=== PATIENT | male | born 1965 | race Caucasian/White ===

== ENCOUNTER 2021-02-14 08:22 | Emergency (ER) | payer OTHER ==
[2021-02-14] MEDS ORDERED: LIDOCAINE 1% MPF 5 ML VIAL ONE (09:00)
[2021-02-14] MEDS ORDERED: CEPHALEXIN 250 MG CAP ONE (10:06)
--- NOTE | 2021-02-14 10:37 | RAD REPORT ---
EXAM DESCRIPTION: RAD -Hand Left 3 View - 02/14/2021 10:23 am CLINICAL HISTORY: Left hand pain status post injury FINDINGS: No fracture or dislocation is seen. A radiopaque foreign body is not seen
--- NOTE | 2021-02-14 10:48 | ER ---
Nurse's Notes [facility] Name: Gregorio Estes Age: 55 yrs Sex: Male : 1965 Arrival Date: 02/14/2021 Time: 08:23 Bed 13 Private MD: Diagnosis: Finger Laceration;Hand Laceration Presentation: 02/14 08:34 Chief complaint: Patient states: i was cutting trees with a machete in my back yard and tw2 cut my LEFT hand from my 1st finger down to my thumb pretty good. 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 no pain and my tetanus is up to date w/in the past year. Coronavirus screen: At this time, the client does not indicate any symptoms associated with coronavirus-19. Ebola Screen: Patient denies travel to an Ebola-affected area in the 21 days before illness onset. Complicating Factors: There are no complicating factors for this patient. Initial Sepsis Screen: Does the patient meet any 2 criteria? No. Patient's initial sepsis screen is negative. Does the patient have a suspected source of infection? No. Patient's initial sepsis screen is negative. Risk Assessment: Do you want to hurt yourself or someone else? Patient reports no desire to harm self or others. Onset of symptoms was February 14, 2021. 08:34 Method Of Arrival: Ambulatory tw2 08:34 Acuity: ELVIRA 4 tw2 Triage Assessment: 08:36 General: Appears in no apparent distress. well groomed, Behavior is calm, cooperative, tw2 appropriate for age. Pain: Denies pain. Respiratory: Airway is patent Respiratory effort is even, unlabored, Respiratory pattern is regular, symmetrical. Musculoskeletal: Circulation, motion, and sensation intact. Injury Description: Laceration sustained to lateral aspect of left hand and lateral aspect of left fingers. Historical: - Allergies: 08:36 No Known Allergies; tw2 - Home Meds: 08:36 None [Active]; tw2 - PMHx: 08:36 None; tw2 - PSHx: 08:36 None; tw2 - Immunization history:: Last tetanus immunization: up to date. - Social history:: Smoking status: . Screenin:56 Abuse screen: Denies threats or abuse. Nutritional screening: No deficits noted. tw2 Tuberculosis screening: No symptoms or risk factors identified. Fall Risk None identified. Assessment: 08:57 General: Appears in no apparent distress. Behavior is calm, cooperative, appropriate tw2 for age. Respiratory: Airway is patent Respiratory effort is even, unlabored, Respiratory pattern is regular, symmetrical. Musculoskeletal: Circulation, motion, and sensation intact. Range of motion: intact in all extremities. Injury Description: Laceration is bleeding moderately, jagged with moderate bleeding noted when pressure dressing removed by Dr. Parson. Pressure dressing applied back at this time for lac supply materials. 09:57 Reassessment: Patient appears in no apparent distress at this time. Patient and/or tw2 family updated on plan of care and expected duration. Pain level reassessed. Patient is alert, oriented x 3, equal unlabored respirations, skin warm/dry/pink. laceration repaired at this time, no uncontrolled bleeding, pt comfortable at this time, crackers given with abx and water given, pending xray at this time. 10:12 Reassessment: xray at bedside at this time. tw2 11:08 Reassessment: Patient appears in no apparent distress at this time. Patient and/or tw2 family updated on plan of care and expected duration. Pain level reassessed. Patient is alert, oriented x 3, equal unlabored respirations, skin warm/dry/pink. Vital Signs: 08:34 BP 139 / 81; Pulse 90; Resp 17; Temp 97.9(TE); Pulse Ox 97% on R/A; Pain 0/10; tw2 09:58 BP 116 / 88; Pulse 71; Resp 17; Pulse Ox 99% on R/A; tw2 ED Course: 08:23 Patient arrived in ED. as 08:30 Paul Parson MD is Attending Physician. kdr 08:33 Kelly Buckner, ARIANNA is Primary Nurse. tw2 08:34 Bed in low position. Call light in reach. Pulse ox on. NIBP on. tw2 08:36 Triage completed. tw2 08:37 Arm band placed on. tw2 09:20 Primary Nurse role handed off by Kelly Buckner, RN tw2 09:43 Kelly Buckner, RN is Primary Nurse. tw2 10:23 Hand Left 3 View XRAY In Process Unspecified. EDMS 10:29 Giacomo Patino PA is PHCP. jmm 10:47 Luis Rios MD is Referral Physician. jmm 11:05 Patient did not have IV access during this emergency room visit. tw2 11:05 Assist provider with laceration repair on left hand that was between 2.6 to 7.5 cm tw2 using sutures. Set up tray. Performed by Giacomo MURILLO Dressed with 4X4s, Neosporin, Patient tolerated well. secured loosely with coban. CMS intact. Administered Medications: 09:13 Drug: Lidocaine (1 %) 5 ml {Note: by CHIDI Simeon at this time..} Volume: 5 ml; Route: tw2 Infiltration; :50 Drug: KeFLEX (cephalexin) 500 mg Route: PO; tw2 11:05 Follow up: Response: No adverse reaction tw2 Outcome: 10:47 Discharge ordered by . [facility] 11:07 Discharged to home ambulatory. tw2 11:07 Condition: stable 11:07 Discharge instructions given to patient, Instructed on discharge instructions, follow up and referral plans. medication usage, wound care, S\T\S infection, CMS checks Demonstrated understanding of instructions, follow-up care, medications, wound care, Prescriptions given X 1. 11:08 Patient left the ED. tw2 Signatures: Dispatcher [employer] EDMS Paul Parson MD MD kdr Mickail, Joel, PA PA jmm Martinez, Amelia as Wise, Tara, RN RN tw2 Corrections: (The following items were deleted from the chart) 11:07 09:13 Assist provider with laceration repair on left hand that was between 2.6 to 7.5 tw2 cm using sutures. Set up tray. Performed by Giacomo MURILLO Dressed with 4X4s, Neosporin, Patient tolerated well. secured loosely with coban. CMS intact tw2
--- NOTE | 2021-02-14 10:48 | EDPHYS ---
Physician Documentation [facility] Name: Gregorio Estes Age: 55 yrs Sex: Male : 1965 Arrival Date: 02/14/2021 Time: 08:23 Bed 13 Private MD: ED Physician Paul Parson HPI: 02/14 09:50 This 55 yrs old Male presents to ER via Ambulatory with complaints of kdr Laceration To Hand. 09:50 The patient has a laceration related to: working, Machete use on plants, occurred at kdr home, and there are no complicating factors. The injury was accidental. The laceration(s) is(are) located on the lateral aspect of left fingers and dorsal aspect of proximal phalanx of left index finger. Onset: The symptoms/episode began/occurred suddenly, just prior to arrival. Associated signs and symptoms: The patient has no apparent associated signs or symptoms. The patient has not experienced similar symptoms in the past. The patient has not recently seen a physician. Historical: - Allergies: 08:36 No Known Allergies; tw2 - Home Meds: 08:36 None [Active]; tw2 - PMHx: 08:36 None; tw2 - PSHx: 08:36 None; tw2 - Immunization history:: Last tetanus immunization: up to date. - Social history:: Smoking status: . ROS: 09:50 Constitutional: Negative for fever, chills, and weight loss, Eyes: Negative for injury, kdr pain, redness, and discharge, Neck: Negative for injury, pain, and swelling. 09:50 Skin: Positive for laceration(s), of the lateral aspect of left fingers and dorsal aspect of proximal phalanx of left index finger. Exam: 09:50 Constitutional: This is a well developed, well nourished patient who is awake, alert, kdr and in no acute distress. 09:50 Musculoskeletal/extremity: ROM: no acute changes, Circulation is intact in all extremities. Sensation intact. Tendon exam: specific tendon testing normal through active and passive range of motion 09:50 Skin: injury, laceration(s), the wound is approximately 6 cm(s), of the lateral aspect of left fingers. Vital Signs: 08:34 BP 139 / 81; Pulse 90; Resp 17; Temp 97.9(TE); Pulse Ox 97% on R/A; Pain 0/10; tw2 09:58 BP 116 / 88; Pulse 71; Resp 17; Pulse Ox 99% on R/A; tw2 Laceration: 09:43 Wound Repair of 6cm ( 2.4in ) subcutaneous laceration to lateral aspect of left hand jmm and lateral aspect of left fingers. Distal neuro/vascular/tendon intact. Anesthesia: Local anesthetic administered with 5 mls of 0.5% marcaine. Wound prep: Extensive cleansing with betadine by me. Skin closed with 9 4-0 Prolene using simple sutures and sterile technique. Patient tolerated well. MDM: 10:45 Patient medically screened. [facility] 10:45 Data reviewed: vital signs, nurses notes. Counseling: I had a detailed discussion with [facility] the patient and/or guardian regarding: the historical points, exam findings, and any diagnostic results supporting the discharge/admit diagnosis, radiology results, the need for outpatient follow up, to return to the emergency department if symptoms worsen or persist or if there are any questions or concerns that arise at home. ED course: Xray negative. Patient advised to follow up with hand for further evaluation. Patient covered with oral abx and given strict return precautions. Patient understood and agrees with the plan. . 02/14 09:26 Order name: Hand Left 3 View XRAY; Complete Time: 10:45 kdr 02/14 09:00 Order name: Prolene, Sutures; Complete Time: 09:00 tw2 02/14 09:00 Order name: Dressing - Wound; Complete Time: 11:05 tw2 02/14 09:00 Order name: Gloves, Sterile; Complete Time: 09:00 tw2 02/14 09:00 Order name: Setup Suture Tray; Complete Time: 09:00 tw2 Administered Medications: 09:13 Drug: Lidocaine (1 %) 5 ml {Note: by CHIDI Simeon at this time..} Volume: 5 ml; Route: tw2 Infiltration; 09:50 Drug: KeFLEX (cephalexin) 500 mg Route: PO; tw2 11:05 Follow up: Response: No adverse reaction tw2 Disposition: 17:36 Co-signature as Attending Physician, Paul Parson MD I agree with the assessment and kdr plan of care. Disposition: 02/14/21 10:47 Discharged to Home. Impression: Finger Laceration, Hand Laceration. - Condition is Stable. - Discharge Instructions: Laceration Care, Adult. - Prescriptions for Bactrim DS 800- 160 mg Oral Tablet - take 1 tablet by ORAL route every 12 hours for 10 days; 20 tablet. - Medication Reconciliation Form, Thank You Letter, Antibiotic Education, Prescription Opioid Use, Work release form form. - Follow up: Private Physician; When: 7 - 10 days; Reason: Recheck today's complaints, Continuance of care, Staple/Suture removal, Re-evaluation by your physician. Follow up: Luis Rios MD; When: 7 - 10 days; Reason: Recheck today's complaints, Continuance of care, Re-evaluation by your physician. Signatures: Dispatcher [employer] EDPaul Santiago MD MD kdr Mickail, Joel, PA PA jmm Wise, Tara, RN RN tw2 Corrections: (The following items were deleted from the chart) 10:47 10:47 02/14/2021 10:47 Discharged to Home. Impression: Finger Laceration; Hand jmm Laceration. Condition is Stable. Forms are Work release form, Medication Reconciliation Form, Thank You Letter, Antibiotic Education, Prescription Opioid Use. Follow up: Private Physician; When: 7 - 10 days; Reason: Recheck today's complaints, Continuance of care, Staple/Suture removal, Re-evaluation by your physician. [facility] 11:08 10:47 02/14/2021 10:47 Discharged to Home. Impression: Finger Laceration; Hand tw2 Laceration. Condition is Stable. Discharge Instructions: Laceration Care, Adult. Forms are Work release form, Medication Reconciliation Form, Thank You Letter, Antibiotic Education, Prescription Opioid Use. Follow up: Private Physician; When: 7 - 10 days; Reason: Recheck today's complaints, Continuance of care, Staple/Suture removal, Re-evaluation by your physician. Follow up: Luis Rios; When: 7 - 10 days; Reason: Recheck today's complaints, Continuance of care, Re-evaluation by your physician. [facility]
[2021-02-14 11:13] VITALS: TEMP 97.9
[2021-02-14 11:14] VITALS: BP 116/88; O2SAT 99
== END 2021-02-14 11:08 | disposition home or self-care (01) ==
LOC: ER 08:22
PROC: 0JQK0ZZ Repair Left Hand Subcutaneous Tissue and Fascia, Open Approach (ICD-10-PCS; principal; 2021-02-14)
DX: S61.211A Laceration without foreign body of left index finger without damage to nail, initial encounter (principal); W26.0XXA Contact with knife, initial encounter; Y93.89 Activity, other specified; Y92.009 Unspecified place in unspecified non-institutional (private) residence as the place of occurrence of the external cause
CPT/HCPCS: 99284